=== PATIENT | male | born 1955 | race Caucasian/White ===

== ENCOUNTER 2020-10-07 07:18 | Observation (INO) ==
[2020-10-07] MEDS ORDERED: ANCEF 1 GRAM IV PREMIX* 2 G/100 ML BAG IV ONE (08:00)
[2020-10-07] MEDS ORDERED: NS 1000 ML 1,000 ML ONE ×2 (08:00→10:10)
[2020-10-07 09:20] VITALS: BMI 38.3
[2020-10-07] MEDS ORDERED: MARCAINE 0.25% INJ ONE (09:30)
[2020-10-07] MEDS ORDERED: NAROPIN 0.75% EPI ONE (09:51)
[2020-10-07] MEDS ORDERED: TORADOL 30 MG VIAL ONE ×2 (10:10→10:15)
[2020-10-07] MEDS ORDERED: FENTANYL INJ 100 mcg ONE (10:10)
[2020-10-07] MEDS ORDERED: DECADRON INJ ONE ×2 (10:10→10:15)
[2020-10-07] MEDS ORDERED: OFIRMEV IV 1000 MG VIAL 1,000 MG/100 ML VIAL IV ONE (10:10)
[2020-10-07] MEDS ORDERED: ULTANE GAS IN ONE (10:15)
[2020-10-07] MEDS ORDERED: VERSED ONE (10:15)
[2020-10-07] MEDS ORDERED: DIPRIVAN VIAL ONE (10:15)
[2020-10-07] MEDS ORDERED: ZOFRAN INJ 4 MG VIAL ONE (10:15)
[2020-10-07] MEDS ORDERED: HYDROGEN PEROXIDE 3% ONE (12:56)
[2020-10-07] MEDS ORDERED: PHENERGAN INJ 25 MG IM PRN (13:21)
[2020-10-07] MEDS ORDERED: BARHEMSYS INJ IVP PRN (13:21)
[2020-10-07] MEDS ORDERED: DILAUDID INJ IVP PRN (13:21)
[2020-10-07] MEDS ORDERED: REGLAN INJ 10 MG VIAL IVP PRN (13:21)
[2020-10-07] MEDS ORDERED: ZOFRAN INJ 4 MG VIAL IVP PRN ×2 (13:21→13:45)
[2020-10-07] MEDS ORDERED: BENADRYL INJ 50 MG VIAL IVP PRN (13:21)
[2020-10-07] MEDS ORDERED: BARHEMSYS INJ ONE ×2 (13:37)
[2020-10-07] MEDS: NS 1000 ML 1,000 ML IV SCH (16:05)
[2020-10-07] MEDS: PERCOCET TAB 5/325 MG PO PRN ×2 (16:05→20:30)
[2020-10-07] MEDS: COLACE CAP 100 MG PO SCH (20:30)
[2020-10-08] MEDS: NS 1000 ML 1,000 ML IV SCH ×4 (01:06→20:52)
[2020-10-08] MEDS: PERCOCET TAB 5/325 MG PO PRN ×3 (05:20→18:16)
[2020-10-08] MEDS: LOVENOX INJ 40 MG SYR SC SCH (09:33)
--- NOTE | 2020-10-08 15:00 | PCM.PROG ---
Progress Note Progress Note for Day of Date of Exam: 10/08/20 Subjective Subjective: Lying in bed with at bedside; feels ok; ate some of his lunch and is tolerating without n/v/abd pain; concerned that his home meds haven't been restarted. Past Medical Family Social History Past Med/Fam/Surg Hx: No changes since H&P Allergies: Allergies No Known Drug Allergies Allergy (Verified 10/07/20 08:17) Review of Systems ROS: No change since H&P Vital Signs and I&O's Vital Signs: Temperature 98.6 F Pulse Rate [Left Brachial] 95 Pulse Rate 78 Respiratory Rate 18 Blood Pressure [Left Arm] 159/78 Blood Pressure 148/90 O2 Sat by Pulse Oximetry 97 Intake and Output: Intake & Output 10/05/20 10/06/20 10/07/20 10/08/20 23:59 23:59 23:59 23:59 Intake Total 2043 / 2043 1629 / 1629 Balance 2043 1629 / 1629 Physical Exam Oriented: Normal, Time, Person and Place Eyes: Normal Ear: Normal Cardiovascular: Normal Auscultation: Bowel Sounds: Normal Musculoskeletal: Normal and Right (LE in splint and elevated) Mood Description: Calm Speech Pattern: Clear and Appropriate Laboratory and Diagnostics Labs: Laboratory POC Glucose (mg/dL) 147 mg/dL (65-99) H 10/07/20 07:56 Plan (1) Hyperkalemia: Status: Acute Plan: Repeat and treat accordingly. (2) Hypertension, essential: Status: Acute Plan: Continue current mgmt. and follow. (3) Hyperlipidemia, mixed: Status: Acute (4) Type 2 diabetes mellitus: Status: Acute Plan: Follow sugars and cover accordingly.
[2020-10-08] MEDS ORDERED: HumuLIN R SUBCUT PRN (15:09)
[2020-10-08] MEDS ORDERED: ZOFRAN INJ 4 MG VIAL IVP PRN (15:15)
[2020-10-08] MEDS ORDERED: ZOFRAN INJ 4 MG VIAL ONE (15:20)
[2020-10-08] MEDS: ABILIFY PO SCH (15:32)
[2020-10-08] MEDS: NORVASC TAB 10 MG PO SCH (15:33)
[2020-10-08] MEDS: WELLBUTRIN XL 300 MG (DAILY) PO SCH (15:33)
[2020-10-08] MEDS: LOPID PO SCH (16:33)
[2020-10-08] MEDS: GLUCOPHAGE PO SCH (16:36)
[2020-10-08] MEDS: SEROquel TAB 25 mg PO SCH (17:33)
[2020-10-08] MEDS ORDERED: SNACK - Diabetic Appropriate PO SCH (20:00)
[2020-10-08] MEDS: VASOTEC TAB 20 MG PO SCH (20:40)
[2020-10-08] MEDS: COLACE CAP 100 MG PO SCH (20:55)
[2020-10-08] MEDS ORDERED: HYTRIN PO SCH (21:00)
[2020-10-08] MEDS ORDERED: PRAVACHOL PO SCH (21:00)
[2020-10-08] MEDS ORDERED: TORADOL 30 MG VIAL IVP PRN (21:47)
[2020-10-08] MEDS: APRESOLINE TAB 25 MG PO SCH (22:10)
[2020-10-08] MEDS: LYRICA CAP 150 mg PO SCH (22:10)
[2020-10-09] MEDS: NS 1000 ML 1,000 ML IV SCH ×3 (03:53→09:11)
[2020-10-09 05:17] LABS: BASOPHILS % (AUTO) 0.6 % (0.2-1.0); EOSINOPHILS # (AUTO) 0.2 x10^3/uL (0.0-0.2); EOSINOPHILS % (AUTO) 3.6 % (0.9-2.9); HEMATOCRIT 32.5 % (42.0-54.0); HEMOGLOBIN 11.4 g/dL (13.5-18.0); LYMPHOCYTES # (AUTO) 1.9 X10^3/uL (1.3-2.9); LYMPHOCYTES % (AUTO) 28.3 % (21.0-51.0); MEAN CORPUSCULAR HEMOGLOBIN 30.1 pg (27.0-34.0); MEAN CORPUSCULAR HGB CONC 34.9 g/dL (33.0-35.0); MEAN CORPUSCULAR VOLUME 86.3 fL (80.0-100.0); MEAN PLATELET VOLUME 9.9 fL (7.4-11.0); MONOCYTES # (AUTO) 0.6 x10^3/uL (0.3-0.8); MONOCYTES % (AUTO) 8.5 % (0.0-13.0); PLATELET COUNT 158 X10^3/uL (150.0-450.0); RED BLOOD COUNT 3.77 X10^6/uL (4.7-6.0); RED CELL DISTRIBUTION WIDTH 12.9 % (11.6-16.5); WHITE BLOOD COUNT 6.8 X10^3/uL (3.6-10.0)
[2020-10-09 05:31] LABS: ALANINE AMINOTRANSFERASE 51 Units/L (12-78); ALBUMIN 3.3 g/dL (3.4-5.0); ALKALINE PHOSPHATASE 60 Units/L (46-116); ASPARTATE AMINO TRANSFERASE 28 Units/L (15-37); BLOOD UREA NITROGEN 9 mg/dL (7-18); CALCIUM 7.9 mg/dL (8.5-10.1); CARBON DIOXIDE 27.4 mmol/L (21-32); CHLORIDE 108 mmol/L (98-107); COR CA(FOR HYPOALB) 8.5 mg/dL (8.5-10.1); COR NA(FOR HYPERGLY) 145 mmol/L (136-145); CREATININE 1.09 mg/dL (0.70-1.30); SODIUM 144 mmol/L (136-145); TOTAL PROTEIN 6.5 g/dL (6.4-8.2); eGFR NON BLACK RACES > 60 (>60)
[2020-10-09] MEDS: LOPID PO SCH (05:54)
[2020-10-09] MEDS: APRESOLINE TAB 25 MG PO SCH (05:54)
[2020-10-09] MEDS: LYRICA CAP 150 mg PO SCH (05:54)
[2020-10-09] MEDS: GLUCOPHAGE PO SCH ×2 (06:21→11:49)
[2020-10-09 08:10] VITALS: BP 178/86
[2020-10-09] MEDS: SEROquel TAB 25 mg PO SCH (09:09)
[2020-10-09] MEDS: LOVENOX INJ 40 MG SYR SC SCH (09:09)
[2020-10-09] MEDS: NORVASC TAB 10 MG PO SCH (09:09)
[2020-10-09] MEDS: WELLBUTRIN XL 300 MG (DAILY) PO SCH (09:09)
[2020-10-09] MEDS: ABILIFY PO SCH (09:09)
[2020-10-09] MEDS: VASOTEC TAB 20 MG PO SCH (09:09)
[2020-10-09] MEDS: PERCOCET TAB 5/325 MG PO PRN (09:10)
--- NOTE | 2020-10-09 11:56 | W.DIS.FURT ---
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 He underwent surgery 10/08 and did well overnight; currently in bed with foot elevated on pillow "ready to go home yesterday"; denies cp, sob, abd pain, n/v/d; a/o x 3, speech wnl, cv rrr and cta bilaterally anteriorly. Vital Signs: Vital Signs (72 hours) 10/07/20 08:05 10/07/20 10:10 10/07/20 13:15 Temperature 98.0 F 98.7 F Pulse Rate 88 99 H Pulse Rate [Left Brachial] Respiratory Rate 16 16 16 Blood Pressure 167/97 156/92 Blood Pressure [Left Arm] O2 Sat by Pulse Oximetry 96 96 10/07/20 13:20 10/07/20 13:25 10/07/20 13:30 Temperature Pulse Rate 97 H 100 H 97 H Pulse Rate [Left Brachial] Respiratory Rate 16 16 16 Blood Pressure 157/97 170/95 158/100 Blood Pressure [Left Arm] O2 Sat by Pulse Oximetry 94 L 94 L 94 L 10/07/20 13:35 10/07/20 13:40 10/07/20 13:45 Temperature Pulse Rate 78 77 78 Pulse Rate [Left Brachial] Respiratory Rate 16 16 16 Blood Pressure 162/101 163/96 146/90 Blood Pressure [Left Arm] O2 Sat by Pulse Oximetry 95 94 L 94 L 10/07/20 13:50 10/07/20 13:55 10/07/20 14:00 Temperature 98.0 F Pulse Rate 78 78 Pulse Rate [Left Brachial] 84 Respiratory Rate 16 16 20 Blood Pressure 148/89 148/90 Blood Pressure [Left Arm] 163/83 O2 Sat by Pulse Oximetry 94 L 95 94 L 10/07/20 14:15 10/07/20 14:30 10/07/20 15:00 Temperature 98.0 F 97.9 F Pulse Rate Pulse Rate [Left Brachial] 84 87 94 H Respiratory Rate 20 20 20 Blood Pressure Blood Pressure [Left Arm] 163/86 148/84 173/88 O2 Sat by Pulse Oximetry 94 L 93 L 93 L 10/07/20 16:00 10/07/20 16:05 10/07/20 17:00 Temperature 98.6 F Pulse Rate Pulse Rate [Left Brachial] 95 H 98 H Respiratory Rate 20 20 20 Blood Pressure Blood Pressure [Left Arm] 197/96 143/77 O2 Sat by Pulse Oximetry 95 94 L 10/07/20 17:05 10/07/20 19:00 10/07/20 20:00 Temperature 98.0 F 98.0 F Pulse Rate Pulse Rate [Left Brachial] 100 H 100 H Respiratory Rate 20 18 18 Blood Pressure Blood Pressure [Left Arm] 134/82 134/82 O2 Sat by Pulse Oximetry 92 L 92 L 10/07/20 20:30 10/07/20 21:30 10/08/20 00:00 Temperature 97.9 F Pulse Rate Pulse Rate [Left Brachial] 98 H Respiratory Rate 18 20 18 Blood Pressure Blood Pressure [Left Arm] 138/82 O2 Sat by Pulse Oximetry 94 L 10/08/20 04:00 10/08/20 05:20 10/08/20 06:20 Temperature 97.9 F Pulse Rate Pulse Rate [Left Brachial] 88 Respiratory Rate 18 18 18 Blood Pressure Blood Pressure [Left Arm] 159/88 O2 Sat by Pulse Oximetry 93 L 10/08/20 08:00 10/08/20 12:00 10/08/20 12:10 Temperature 98.0 F 98.6 F Pulse Rate Pulse Rate [Left Brachial] 85 95 H Respiratory Rate 20 20 18 Blood Pressure Blood Pressure [Left Arm] 178/84 159/78 O2 Sat by Pulse Oximetry 97 97 10/08/20 13:10 10/08/20 16:00 10/08/20 18:16 Temperature 98.3 F Pulse Rate Pulse Rate [Left Brachial] 91 H Respiratory Rate 18 20 18 Blood Pressure Blood Pressure [Left Arm] 162/88 O2 Sat by Pulse Oximetry 94 L 10/08/20 19:16 10/08/20 20:00 10/08/20 22:20 Temperature 98.2 F Pulse Rate Pulse Rate [Left Brachial] 95 H Respiratory Rate 18 18 18 Blood Pressure Blood Pressure [Left Arm] 162/80 O2 Sat by Pulse Oximetry 94 L 10/08/20 22:50 10/09/20 00:00 10/09/20 04:00 Temperature 97.5 F L 98.2 F Pulse Rate Pulse Rate [Left Brachial] 94 H 91 H Respiratory Rate 18 18 18 Blood Pressure Blood Pressure [Left Arm] 121/65 159/76 O2 Sat by Pulse Oximetry 92 L 95 10/09/20 08:00 10/09/20 09:06 10/09/20 09:10 Temperature 98.5 F Pulse Rate 99 H Pulse Rate [Left Brachial] 104 H Respiratory Rate 20 18 Blood Pressure Blood Pressure [Left Arm] 178/86 O2 Sat by Pulse Oximetry 97 93 L 10/09/20 10:10 Temperature Pulse Rate Pulse Rate [Left Brachial] Respiratory Rate 16 Blood Pressure Blood Pressure [Left Arm] O2 Sat by Pulse Oximetry Labs: Laboratory Last Values WBC 6.8 X10^3/uL (3.6-10.0) 10/09/20 04:25 RBC 3.77 X10^6/uL (4.7-6.0) L 10/09/20 04:25 Hgb 11.4 g/dL (13.5-18.0) L 10/09/20 04:25 Hct 32.5 % (42.0-54.0) L 10/09/20 04:25 MCV 86.3 fL (80.0-100.0) 10/09/20 04:25 MCH 30.1 pg (27.0-34.0) 10/09/20 04:25 MCHC 34.9 g/dL (33.0-35.0) 10/09/20 04:25 RDW 12.9 % (11.6-16.5) 10/09/20 04:25 Plt Count 158 X10^3/uL (150.0-450.0) 10/09/20 04:25 MPV 9.9 fL (7.4-11.0) 10/09/20 04:25 Neut % (Auto) 59.0 % (42.0-75.0) 10/09/20 04:25 Lymph % (Auto) 28.3 % (21.0-51.0) 10/09/20 04:25 Baldwin % (Auto) 8.5 % (0.0-13.0) 10/09/20 04:25 Eos % (Auto) 3.6 % (0.9-2.9) H 10/09/20 04:25 Baso % (Auto) 0.6 % (0.2-1.0) 10/09/20 04:25 Neut # (Auto) 4.0 x10^3/uL (2.2-4.8) 10/09/20 04:25 Lymph # (Auto) 1.9 X10^3/uL (1.3-2.9) 10/09/20 04:25 Baldwin # (Auto) 0.6 x10^3/uL (0.3-0.8) 10/09/20 04:25 Eos # (Auto) 0.2 x10^3/uL (0.0-0.2) 10/09/20 04:25 Baso # (Auto) 0.0 X10^3/uL (0.0-0.1) 10/09/20 04:25 Absolute Nucleated RBC 0.0 /100WBC 10/09/20 04:25 Sodium 144 mmol/L (136-145) 10/09/20 04:25 Corrected Sodium 145 mmol/L (136-145) 10/09/20 04:25 Potassium 4.0 mmol/L (3.5-5.1) 10/09/20 04:25 Chloride 108 mmol/L (98-107) H 10/09/20 04:25 Carbon Dioxide 27.4 mmol/L (21-32) 10/09/20 04:25 BUN 9 mg/dL (7-18) 10/09/20 04:25 Creatinine 1.09 mg/dL (0.70-1.30) 10/09/20 04:25 Est GFR (MDRD) Af Amer > 60 (>60) 10/09/20 04:25 Est GFR (MDRD) Non-Af > 60 (>60) 10/09/20 04:25 Glucose 158 mg/dL (65-99) H 10/09/20 04:25 POC Glucose (mg/dL) 180 mg/dL (65-99) H 10/09/20 05:46 Calcium 7.9 mg/dL (8.5-10.1) L 10/09/20 04:25 Corrected Calcium 8.5 mg/dL (8.5-10.1) 10/09/20 04:25 Total Bilirubin 0.30 mg/dL (0.2-1.0) 10/09/20 04:25 AST 28 Units/L (15-37) 10/09/20 04:25 ALT 51 Units/L (12-78) 10/09/20 04:25 Alkaline Phosphatase 60 Units/L (46-116) 10/09/20 04:25 Total Protein 6.5 g/dL (6.4-8.2) 10/09/20 04:25 Albumin 3.3 g/dL (3.4-5.0) L 10/09/20 04:25 Globulin 3.2 g/dL (2.5-4.5) 10/09/20 04:25 Albumin/Globulin Ratio 1.0 Ratio (1.1-2.1) L 10/09/20 04:25 Reason For Visit: OSTEOMY Discharge Diagnosis All Active Problems (Updated 10/09/20 @ 11:54 by Dianne Ramon) Hyperkalemia (Chronic) Type 2 diabetes mellitus (Acute) Hyperlipidemia, mixed (Acute) Hypertension, essential (Acute) Plan of Treatment: Continue with present treatment and follow up plan. Pt is to keep follow up appointment as instructed and take medications as ordered. Discharge Medications Discharge Medications: No Known Drug Allergies Allergy (Verified 10/07/20 08:17) CONTINUE taking the following medications amlodipine [Norvasc] 10 mg PO DAILY 10/07/20 [History] aripiprazole [Abilify] 5 mg PO DAILY 10/07/20 [History] buprenorphine [Butrans] 1 patch TRANSDERMAL WEEKLY 10/07/20 [History] bupropion HCl [Wellbutrin XL] 300 mg PO DAILY 10/07/20 [History] enalapril maleate [Vasotec] 20 mg PO BID 10/07/20 [History] gemfibrozil [Lopid] 600 mg PO BID 10/07/20 [History] glimepiride [Amaryl] 4 mg PO DAILY 10/07/20 [History] hydralazine 25 mg PO TID 10/07/20 [History] icosapent ethyl [Vascepa] 2 g PO BID 10/07/20 [History] metformin 850 mg PO TID 10/07/20 [History] nortriptyline [Pamelor] 25 mg PO HS 10/07/20 [History] pravastatin 40 mg PO HS 10/07/20 [History] pregabalin [Lyrica] 150 mg PO TID 10/07/20 [History] quetiapine [Seroquel XR] 50 mg PO DAILY 10/07/20 [History] sitagliptin [Januvia] 100 mg PO DAILY 10/07/20 [History] terazosin 10 mg PO HS 10/07/20 [History] vortioxetine [Trintellix] 20 mg PO DAILY 10/07/20 [History] warfarin 2 mg PO DAILY 10/07/20 [History] New Prescriptions enoxaparin [Lovenox] 40 mg SUBCUT Q24H 5 Days #5 ml 10/09/20 [Rx] ondansetron HCl [Zofran] 8 mg PO BID PRN #30 tab 10/09/20 [Rx] oxycodone-acetaminophen [Percocet] 1 tab PO Q4H PRN #36 tab MDD 6 10/09/20 [Rx] Discharge Plan Discharge Plan Hospital Course: Pt admitted for surgery due to significant pain in the lateral aspect of the foot secondary to a 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 He underwent surgery 10/08 and did well overnight; currently in bed with foot yarely vated on pillow "ready to go home yesterday"; denies cp, sob, abd pain, n/v/d; a/o x 3, speech wnl, cv rrr and cta bilaterally anteriorly. Patient Disposition: 01 HOME, SELF-CARE Condition: Stable Health Concerns: Post Hospitalization: new medications and changes needed to prevent readmission or further decline. Pt educated and given instructions on all concerns. Care Plan Goals: Problem: Pain/Alteration in Comfort Goal: Improve/ Resolve Pain; Achieve Pain Tolerance Instructions: Take pain medications as prescribed. Contact your primary care provider if your pain is unrelieved or worsens. Follow up with primary care provider as directed. Plan of Treatment: Continue with present treatment and follow up plan. Pt is to keep follow up appointment as instructed and take medications as ordered. Prescriptions: New enoxaparin [Lovenox] 40 mg/0.4 mL Syringe 40 mg SUBCUT Q24H 5 Days Qty: 5 RF: 0 ondansetron HCl [Zofran] 4 mg Tablet 8 mg PO BID PRNQty: 30 RF: 0 oxycodone-acetaminophen [Percocet] 5-325 mg Tablet 1 tab PO Q4H MDD 6 PRNQty: 36 RF: 0 No Action pravastatin 40 mg tablet 40 mg PO HS RF: 0 enalapril maleate [Vasotec] 20 mg tablet 20 mg PO BID RF: 0 metformin 850 mg tablet 850 mg PO TID RF: 0 hydralazine 25 mg tablet 25 mg PO TID RF: 0 nortriptyline [Pamelor] 25 mg capsule 25 mg PO HS RF: 0 amlodipine [Norvasc] 10 mg tablet 10 mg PO DAILY RF: 0 gemfibrozil [Lopid] 600 mg tablet 600 mg PO BID RF: 0 glimepiride [Amaryl] 4 mg tablet 4 mg PO DAILY RF: 0 terazosin 10 mg capsule 10 mg PO HS RF: 0 aripiprazole [Abilify] 5 mg tablet 5 mg PO DAILY RF: 0 pregabalin [Lyrica] 150 mg capsule 150 mg PO TID RF: 0 Januvia 100 mg tablet 100 mg PO DAILY RF: 0 quetiapine [Seroquel XR] 50 mg tablet extended release 24 hr 50 mg PO DAILY RF: 0 buprenorphine [Butrans] 20 mcg/hour patch weekly 1 patch transdermal WEEKLY RF: 0 icosapent ethyl [Vascepa] 1 gram capsule 2 g PO BID RF: 0 warfarin 1 mg tablet 2 mg PO DAILY RF: 0 bupropion HCl [Wellbutrin XL] 300 mg tablet extended release 24 hr 300 mg PO DAILY RF: 0 Trintellix 20 mg tablet 20 mg PO DAILY RF: 0 Orders to Discharge Patient Discharge Orders: Discharge (Routine); Ordered 10/09/20 Ordered By: Dianne Ramon Follow ups/Referrals Follow ups/Referrals: Jose Ulloa [CONSULTING PHYSICIAN] - 10/13/20 10:30 am Instructions Instructions: Metatarsal Osteotomy, Care After Activity Restrictions/Additional Instructions: NON WEIGHT BEARING ON RIGHT FOOT. USE WALKER TO TRANSFER. KEEP RIGHT FOOT ELEVATED. DO NOT CHANGE DRESSING. DO NOT GET WET. Stand Alone Forms: Excuse From Work or School, Precautions for COVID19, Patient Portal, Social Distancing
== END 2020-10-09 12:20 | disposition home or self-care (01) ==
LOC: OBS → SURG1 07:18 → MED/SURG 07:18 → EDUNIT# 11:00 → EDSTATUS 11:00 → MED/SURG 13:59
PROVIDERS: ADMIT Podiatrist; ATTEND Obstetrics & Gynecology Obstetrics
DX: E78.2 Mixed hyperlipidemia; E11.65 Type 2 diabetes mellitus with hyperglycemia; M21.861 Other specified acquired deformities of right lower leg; E87.5 Hyperkalemia; I10 Essential (primary) hypertension; M12.571 Traumatic arthropathy, right ankle and foot